=== PATIENT | female | born 1980 | race Caucasian/White ===

== ENCOUNTER 2018-02-04 23:31 | Emergency (ER) | payer MEDICAID ==
[2018-02-04] MEDS ORDERED: CEFEPIME 2 GM/D5W RTU 2 GM/50 ML RTUPB IV ONE (23:44)
[2018-02-04] MEDS ORDERED: RINGERS SOLUTION,LACTATED 1,000 ML IV ONE (23:44)
[2018-02-05 00:11] LABS: HEMATOCRIT 28.3 % (36.0-47.0); HEMOGLOBIN 8.7 g/dL (12.0-15.5); MEAN CORPUSCULAR HEMOGLOBIN 22.1 pg (27.0-33.4); MEAN CORPUSCULAR HGB CONC 30.9 g/dL (32.0-36.0); MEAN CORPUSCULAR VOLUME 72 fl (80-97); PLATELET COUNT 321 10^3/uL (150-450); RED BLOOD COUNT 3.95 10^6/uL (3.72-5.28); RED CELL DISTRIBUTION WIDTH 19.4 % (11.5-14.0); WHITE BLOOD COUNT 22.2 10^3/uL (4.0-10.5)
--- NOTE | 2018-02-05 00:19 | RADIOLOGY REPORT (SQ) ---
XR CHEST 1 VIEW HISTORY: Fever, cough. COMPARISON: None. FINDINGS/IMPRESSION: Normal cardiomediastinal contours. Lungs are clear. Low lung volumes are present. No pleural effusion or pneumothorax is seen. No acute osseous findings.
[2018-02-05 00:21] LABS: ALANINE AMINOTRANSFERASE 184 U/L (9-52); ALBUMIN 3.3 g/dL (3.5-5.0); ALKALINE PHOSPHATASE 471 U/L (38-126); ANION GAP 16 (5-19); ASPARTATE AMINO TRANSFERASE 123 U/L (14-36); BILIRUBIN,DIRECT 6.4 mg/dL (0.0-0.4); BILIRUBIN,TOTAL 7.8 mg/dL (0.2-1.3); BLOOD UREA NITROGEN 13 mg/dL (7-20); CALCIUM 8.7 mg/dL (8.4-10.2); CARBON DIOXIDE 17 mmol/L (22-30); CHLORIDE 110 mmol/L (98-107); GLUCOSE 114 mg/dL (75-110); POTASSIUM 3.4 mmol/L (3.6-5.0); SODIUM 142.9 mmol/L (137-145); TOTAL PROTEIN 7.1 g/dL (6.3-8.2)
[2018-02-05] MEDS ORDERED: RINGERS SOLUTION,LACTATED 1,000 ML IV ONE ×3 (00:22→08:08)
--- NOTE | 2018-02-05 00:22 | ER Document Report ---
ED General - General Chief Complaint: Fever Stated Complaint: FEVER Time Seen by Provider: 02/04/18 23:42 Cannot obtain history due to: Mentally challenged Notes: Patient is a 37-year-old female with a past medical history of cerebral palsy with associated profound mental retardation, nonverbal at baseline who presents by EMS with concerns of fever. The patient resides at a inpatient nursing facility. The report that for the past 3-4 days the patient has refused to eat. This was concerning to staff as normally she has a good appetite. They state tonight when she developed a fever they contacted her primary care doctor who encouraged them to bring her immediately to the emergency department. No history of similar symptoms in the past. The patient is not able to provide any history. - Related Data Allergies/Adverse Reactions: No Known Allergies Allergy (Unverified 02/05/18 00:06) Past Medical History - General Information source: Transfer Record, Outside Facility Records Cannot obtain history due to: Mentally challenged - Social History Smoking Status: Never Smoker Frequency of alcohol use: None Drug Abuse: None Lives with: Custodial Family History: Reviewed & Not Pertinent Patient has suicidal ideation: No Patient has homicidal ideation: No Renal/ Medical History: Denies: Hx Peritoneal Dialysis Review of Systems - Review of Systems -: Yes ROS unobtainable due to patient's medical condition Physical Exam - Vital signs Vitals: Resp 25 H 02/04/18 23:42 Interpretation: Tachycardic, Febrile Notes: PHYSICAL EXAMINATION: GENERAL: Chronically ill in appearance, appears quite uncomfortable. HEAD: Atraumatic, normocephalic. EYES: Pupils equal round and reactive to light, sclera anicteric, conjunctiva are normal. ENT: nares patent, oropharynx clear without exudates. Dry mucous membranes. NECK: supple without lymphadenopathy LUNGS: Breath sounds clear to auscultation bilaterally and equal. No wheezes rales or rhonchi. HEART: Regular tachycardia without murmurs ABDOMEN: Soft, mild diffuse generalized tenderness, normoactive bowel sounds. No guarding, no rebound. No masses appreciated. EXTREMITIES: no pitting or edema. No cyanosis. NEUROLOGICAL: No focal neurological deficits. Moves all extremities spontaneously and on command. PSYCH: Nonverbal SKIN: Warm, Dry, normal turgor, no rashes or lesions noted. Course - Re-evaluation Re-evalutation: 02/05/18 00:21 Presentation of a 37-year-old patient with a history of cerebral palsy who presents with sepsis. Patient is unable to provide history. Staff reports that she developed a fever to 104 rectal today at the facility. Dr. Hughes advised transfer to the hospital. On exam patient has no focal findings beyond borderline hypoxemia on vitals. A full panel of labs has been obtained. I have initiated cefepime as well as IV fluids. Will reassess after labs have been completed. 02/05/18 00:56 Labs are extremely concerning for ascending cholangitis. Patient has a marked leukocytosis, significant elevation of direct bilirubin, LFT derangements. Particular in the context of fever this is a sending cholangitis until otherwise proven. Will proceed with right upper quadrant ultrasound, CT abdomen pelvis with IV contrast, ongoing IV fluids, add Flagyl to cefepime and plan for transfer after completion of radiographic imaging. 02/05/18 02:10 CT scan does show large dilation up to 6 mm of the intrahepatic and extra hepatic bile ducts with a distal stone very much so worrisome for cholangitis. I have contacted [facility] and have requested transfer. I am awaiting callback. The patient has an improvement of her discomfort after receiving IV fentanyl. She has had some nausea and vomiting which has been controlled with IV Zofran. She does continue to have mild tachycardia but she is not hypotensive. She is continuing to receive IV fluids. Will continue to reassess at regular intervals. 02/05/18 02:24 Patient continues to be hemodynamically within acceptable limits. I discussed this case with the resident working under who has accepted this patient. Will continue to monitor until transfer has arrived. 02/05/18 02:58 Patient continues to rest comfortably at this point. Overall appears much improved after receiving IV fluids and pain control. Awaiting transport. - Vital Signs Vital signs: Temp Pulse Resp BP Pulse Ox 99.3 F 17 111/66 96 02/05/18 00:59 02/05/18 01:01 02/05/18 01:00 02/05/18 01:01 - Laboratory Result Diagrams: 02/04/18 23:53 02/04/18 23:53 Laboratory results interpreted by me: 02/04/18 02/04/18 02/04/18 23:53 23:53 23:53 WBC 22.2 H Hgb 8.7 L Hct 28.3 L MCV 72 L MCH 22.1 L MCHC 30.9 L RDW 19.4 H Seg Neuts % (Manual) 82 H Abs Neuts (Manual) 18.2 H Potassium 3.4 L Chloride 110 H Carbon Dioxide 17 L Glucose 114 H Total Bilirubin 7.8 H Direct Bilirubin 6.4 H AST 123 H ALT 184 H Alkaline Phosphatase 471 H Albumin 3.3 L Urine Protein >=500 H Urine Blood MODERATE H Urine Bilirubin MODERATE H Urine Urobilinogen 4.0 H - Diagnostic Test Radiology reviewed: Reports reviewed Critical Care Note - Critical Care Note Total time excluding time spent on procedures (mins): 37 Comments: Critical care time spent obtaining history from patient or surrogate, discussions with consultants, development of treatment plan with patient or surrogate, evaluation of patient's response to treatment, examination of patient , ordering and performing treatments and interventions, ordering and review of laboratory studies, re-evaluation of patient's condition, ordering and review of radiographic studies and review of old charts Discharge - Discharge Clinical Impression: Ascending cholangitis Sepsis Qualifiers: Sepsis type: sepsis due to unspecified organism Qualified Code(s): A41.9 - Sepsis, unspecified organism Nausea and vomiting Qualifiers: Vomiting type: unspecified Vomiting Intractability: non-intractable Qualified Code(s): R11.2 - Nausea with vomiting, unspecified Condition: Fair Disposition: [facility] Referrals: YUKO HUGHES MD [Primary Care Provider] - Follow up as needed
[2018-02-05 00:29] LABS: APPEARANCE,URINE SLIGHTLY-CLOUDY; BILIRUBIN,URINE MODERATE (NEGATIVE); COLOR,URINE AMBER; GLUCOSE, URINE NEGATIVE (NEGATIVE); KETONES,URINE NEGATIVE (NEGATIVE); LEUKOCYTE ESTERASE,URINE NEGATIVE (NEGATIVE); NITRITE,URINE NEGATIVE (NEGATIVE); PROTEIN,URINE >=500 mg/dL (NEGATIVE); URINE SPECIFIC GRAVITY 1.031
[2018-02-05 00:32] LABS: ABSOLUTE LYMPHOCYTES# (MANUAL) 2.9 10^3/uL (0.5-4.7); ABSOLUTE MONOCYTES # (MANUAL) 1.1 10^3/uL (0.1-1.4); ABSOLUTE NEUTROPHILS# (MANUAL) 18.2 10^3/uL (1.7-8.2); BASOPHILS % (MANUAL) 0 % (0-2); EOSINOPHILS % (MANUAL) 0 % (0-6); LYMPHOCYTES % (MANUAL) 13 % (13-45); MONOCYTES % (MANUAL) 5 % (3-13); SEGMENTED NEUTROPHILS % (MAN) 82 % (42-78); TOTAL CELLS COUNTED 100
[2018-02-05 00:33] LABS: ANISOCYTOSIS 1+; POLYCHROMASIA 1+
[2018-02-05 00:34] LABS: PLATELET COMMENT ADEQUATE
[2018-02-05 00:43] LABS: VENOUS BLOOD BASE EXCESS -3.8 mmol/L; VENOUS BLOOD HCO3 20.9 mmol/L (20-32); VENOUS BLOOD PCO2 36.9 mmHg (35-63); VENOUS BLOOD PH 7.37 (7.30-7.42)
[2018-02-05] MEDS ORDERED: METRONIDAZOLE RTU 500 MG/NS 100 ML IV ONE (00:51)
[2018-02-05] MEDS ORDERED: FENTANYL CITRATE INJ/PF 100 MCG/2 ML AMPUL ONE (01:12)
[2018-02-05] MEDS ORDERED: FENTANYL CITRATE INJ/PF 100 MCG/2 ML AMPUL IV ONE (01:13)
--- NOTE | 2018-02-05 01:59 | RADIOLOGY REPORT (SQ) ---
CT OF THE ABDOMEN AND PELVIS WITH IV CONTRAST Clinical History: 37-year-old female with fever and possible descending cholangitis. Technique: Multiple axial images are taken from the lung bases down to the proximal thigh with the use of IV contrast. Images are then reconstructed in the sagittal and coronal planes. This exam was performed according to our departmental dose-optimization program which includes use of Automated Exposure Control, adjustment of the mA and/or kV according to patient size and/or use of iterative reconstruction technique. Comparison: None available. Findings: CT abdomen: Lung Bases: The lung bases demonstrate minimal bibasilar atelectasis. There is no evidence of free air. Liver: Liver demonstrates intrahepatic biliary prominence. Gallbladder: The bladder is overly distended. Common bile duct: Common bile duct is overly distended. Small stone is visualized measuring approximately 6 mm. Spleen: There is an area of decreased attenuation within the spleen measures 10 mm. Adrenal glands: The adrenal glands are unremarkable. Pancreas: The pancreas is within normal. Stomach: The stomach is within normal limits allowing for lack of adequate distention. Small bowel: Small bowel is fluid-filled measuring within normal. Small bowel mesentery: The small bowel mesentery is grossly unremarkable. Retroperitoneum: The descending aorta measures within normal limits. There is no significant retroperitoneal lymphadenopathy. Kidneys: The kidneys opacify with contrast appropriately. There is no hydronephrosis nor obstructing stone. The portions of the ureters which are visualized measure within normal limits. CT Pelvis: Appendix: The appendix measures within normal on coronal image 59. Large bowel: Large bowel is impacted with stool. Bladder: Bladder is within normal limits for the amount of distention. Pelvic wall: The pelvic wall and abdominal wall are grossly unremarkable. Bones: Osseous structures demonstrate multilevel degenerative disc disease. There is degenerative change with chronically dislocated bilateral hips which is not acute. : Evaluation of the uterus and ovaries is limited due to volume averaging with unopacified bowel. Free fluid: There is no free fluid in the pelvis. IMPRESSION: 1. Intrahepatic and extrahepatic biliary distention with a small stone seen in the common bile duct measuring 6 mm. MRCP may help better delineate. Secondary infection cannot be excluded within the biliary system. 2. Area of decreased attenuation within the spleen most likely represents a hemangioma. However, please correlate with patient's medical history. 3. Fluid-filled small bowel which can be seen with viral etiologies. 4. Impaction of stool throughout the large bowel. 5. Normal appendix. 6. Chronically dislocated bilateral hips.
[2018-02-05] MEDS ORDERED: ONDANSETRON HCL INJ/PF 4 MG/2 ML SDV IV ONE ×2 (02:01→06:43)
--- NOTE | 2018-02-05 03:03 | RADIOLOGY REPORT (SQ) ---
EXAM DESCRIPTION: US ABDOMEN LIMITED COMPLETED DATE/TME: 02/05/2018 00:00 CLINICAL HISTORY: 37 years Female, EVAL FOR ASCENDING CHOLANGITIS Comparison: CT, same day. LIMITATIONS: None. FINDINGS: Cholelithiasis, gallbladder sludge, gallbladder hydrops with transverse diameter 5.5 cm, no gallbladder wall thickening, indeterminate sonographic Conte's test (due to medication and medical condition/cerebral palsy?), liver, a 1.6-cm diameter common bile duct, enlarged intrahepatic ducts, 13-cm right kidney, obscured pancreas, visualized vasculature/abdominal aorta, and no significant ascites appear otherwise unremarkable. IMPRESSION: Cholelithiasis. Gallbladder hydrops. Indeterminate sonographic Conte's test. 1.6 cm diameter common bile duct with enlarged intrahepatic ducts. Consider laboratory/MRCP correlation.
[2018-02-05] MEDS: FENTANYL CITRATE INJ/PF 100 MCG/2 ML AMPUL IV PRN ×3 (03:30→05:12)
[2018-02-05] MEDS ORDERED: HYDROMORPHONE HCL INJ/PF 2 MG/ML AMPULE IV ONE ×2 (05:21→05:24)
[2018-02-05] MEDS ORDERED: METRONIDAZOLE 500 MG/NS RTU 500 MG/100 ML RTUPB IV SCH (06:00)
[2018-02-05] MEDS ORDERED: PANTOPRAZOLE SODIUM 40 MG VIAL IV ONE (06:43)
--- NOTE | 2018-02-05 06:55 | ER Document Report ---
Doctor's Note Notes: 02/05/18 06:53 The patient is pending transfer to [facility], waiting for transport services to arrive. Patient began vomiting, it is mostly dry heaves, retching, with some very dark brown liquid. Difficult to tell if this is coffee-ground appearance or bilious. A sample was obtained this into the lab for gastric occult testing. Patient is anemic, but her red cell indices suggest it is a chronic iron deficiency anemia. 02/05/18 07:58 Gastric occult testing was positive as suspected. 02/05/18 09:06 Transport is leaving now with the patient, they have been here on scene in excess of 1 hour. The patient's nausea vomiting cleared after the Zofran was given. She was repositioned into an almost sitting up position and squared onto her back. She would cough repeatedly without actually coughing up anything. There was a lot of rhonchi heard in the upper airway laryngeal region. The lung sounds themselves were clear on auscultation on both sides in all ramirez. The blood pressure cuff attached to the left upper arm by the transport group was getting a blood pressure of systolic in the 60s, while the patient was upright, active and had a very strong right radial pulse. Her oxygen saturation is 95% on 2 L nasal cannula, and she is a mouth breather. During the time the transport team was here assessed the patient, I repeatedly emphasized the need for her to get higher level of care including ERCP as soon as possible.
[2018-02-05] MEDS ORDERED: ACETAMINOPHEN 650 MG SUPP.RECT PR ONE (06:56)
[2018-02-05] MEDS ORDERED: CEFEPIME 2 GM/D5W RTU 2 GM/50 ML RTUPB IV SCH (08:00)
[2018-02-05 08:17] VITALS: BP 100/56
== END 2018-02-05 08:10 | disposition short-term general hospital (02) ==
LOC: ER 23:31
DX: K80.30 Calculus of bile duct with cholangitis, unspecified, without obstruction (principal); A41.9 Sepsis, unspecified organism; R11.2 Nausea with vomiting, unspecified; D64.9 Anemia, unspecified; R05 Cough; G80.9 Cerebral palsy, unspecified; F79 Unspecified intellectual disabilities
CPT/HCPCS: 96376; 99291; 96361; 96375; 96365; 96367; 36415; 87040; 87086; 85025; 82271; 87077; 80053; 81001; 87186; 82803; 83605; 71045; 76705; 74177; J3490; J3010; J1170; S0164; J2405; J7120; J0692

== ENCOUNTER → 2019-08-14 | Outpatient (CLI) | payer MEDICAID ==
--- NOTE | 2019-08-14 14:32 | RADIOLOGY REPORT (SQ) ---
EXAM DESCRIPTION: UGI W/ SINGLE CONTRAST; SMALL BOWEL POST UGI COMPLETED DATE/TIME: 08/14/2019 12:33 pm REASON FOR STUDY: CHANGE IN BOWLE HABIT R19.4 CHANGE IN BOWEL HABIT COMPARISON: None. TECHNIQUE: Under fluoroscopic guidance, patient ingested thin barium mixed with 50 mL Isovue-300. F luoroscopic spot images and routine radiographic images acquired and stored on PACS. Following evaluation of esophagus and stomach, additional barium administered with serial delayed abd ominal radiographs until colonic identification. Fluoroscopic images recorded of the terminal ileum. FLUOROSCOPY TIME: 5.5 minutes of fluoroscopy was used 39 images saved to PACS. LIMITATIONS: Patient has cerebral palsy and is very immobile FINDINGS: DIRECTORY CLERK KUB: THE there is nonspecific bowel gas pattern. Moderate fecal material seen thro ughout the colon. Multiple surgical clips seen in the right upper quadrant and 1 clip deep within th e pelvis. NEUROMUSCULAR COORDINATION OF SWALLOW: Normal. No aspiration. ESOPHAGEAL MOTILITY: Slow primary peristalsis. No esophageal spasm. ESOPHAGEAL MUCOSA: Normal mucosa without masses or ulceration. GASTRO-ESOPHAGEAL JUNCTION: Small hiatal hernia with mild gastroesophageal reflux. STOMACH: Normal without masses or ulcerations. GASTRIC OUTLET: No delay in emptying. Normal pylorus. DUODENAL BULB: Normal distention. No spasm or ulceration. DUODENUM: Mild mucosal fold thickening throughout the 2nd portion the duodenum. No distinct ulcerati ons can be identified. 3rd and 4th portions of the duodenum are unremarkable. JEJUNUM: Normal mucosal pattern. No dilatation, segmentation, strictures or masses. ILEUM: Normal mucosal pattern. No dilatation, segmentation, strictures or masses. TERMINAL ILEUM AND ILEO-CECAL VALVE: Normal mucosal pattern without cobble-stoning or stricture. Nor mal compression. PROXIMAL COLON: Moderate fecal material within the cecum and ascending colon. There is normal fillin g of the appendix. NON-GI TRACT STRUCTURES: No significant finding. OTHER: Normal transit time through the small bowel with visualization of the cecum on the 3 hour bayron yed image. IMPRESSION: 1. SMALL HIATAL HERNIA WITH MILD GASTROESOPHAGEAL REFLUX. 2. MUCOSAL THICKENING THROUGHOUT THE 2ND PORTION THE DUODENUM CONSISTENT WITH DUODENITIS. THERE IS NO DELAY IN GASTRIC EMPTYING. 3. NORMAL SMALL BOWEL FOLLOW-THROUGH WITHOUT EVIDENCE OF SMALL-BOWEL OBSTRUCTION. 4. MODERATE FECAL MATERIAL THROUGHOUT THE COLON CONSISTENT WITH CONSTIPATION. COMMENT: Recommend endoscopy for further evaluation of the proximal duodenum. Quality ID 145: Final reports for procedures using fluoroscopy that document radiation exposure wander manoj, or exposure time and number of fluorographic images (if radiation exposure indices are not avail able) TECHNICAL DOCUMENTATION: JOB ID: [id number] 2010 [employer]- All Rights Reserved Reading location - IP/workstation name: [email or web address]
--- NOTE | 2019-08-14 14:32 | RADIOLOGY REPORT (SQ) ---
EXAM DESCRIPTION: UGI W/ SINGLE CONTRAST; SMALL BOWEL POST UGI COMPLETED DATE/TIME: 08/14/2019 12:33 pm REASON FOR STUDY: CHANGE IN BOWLE HABIT R19.4 CHANGE IN BOWEL HABIT COMPARISON: None. TECHNIQUE: Under fluoroscopic guidance, patient ingested thin barium mixed with 50 mL Isovue-300. F luoroscopic spot images and routine radiographic images acquired and stored on PACS. Following evaluation of esophagus and stomach, additional barium administered with serial delayed abd ominal radiographs until colonic identification. Fluoroscopic images recorded of the terminal ileum. FLUOROSCOPY TIME: 5.5 minutes of fluoroscopy was used 39 images saved to PACS. LIMITATIONS: Patient has cerebral palsy and is very immobile FINDINGS: GRAIN COMBINER KUB: THE there is nonspecific bowel gas pattern. Moderate fecal material seen thro ughout the colon. Multiple surgical clips seen in the right upper quadrant and 1 clip deep within th e pelvis. NEUROMUSCULAR COORDINATION OF SWALLOW: Normal. No aspiration. ESOPHAGEAL MOTILITY: Slow primary peristalsis. No esophageal spasm. ESOPHAGEAL MUCOSA: Normal mucosa without masses or ulceration. GASTRO-ESOPHAGEAL JUNCTION: Small hiatal hernia with mild gastroesophageal reflux. STOMACH: Normal without masses or ulcerations. GASTRIC OUTLET: No delay in emptying. Normal pylorus. DUODENAL BULB: Normal distention. No spasm or ulceration. DUODENUM: Mild mucosal fold thickening throughout the 2nd portion the duodenum. No distinct ulcerati ons can be identified. 3rd and 4th portions of the duodenum are unremarkable. JEJUNUM: Normal mucosal pattern. No dilatation, segmentation, strictures or masses. ILEUM: Normal mucosal pattern. No dilatation, segmentation, strictures or masses. TERMINAL ILEUM AND ILEO-CECAL VALVE: Normal mucosal pattern without cobble-stoning or stricture. Nor mal compression. PROXIMAL COLON: Moderate fecal material within the cecum and ascending colon. There is normal fillin g of the appendix. NON-GI TRACT STRUCTURES: No significant finding. OTHER: Normal transit time through the small bowel with visualization of the cecum on the 3 hour bayron yed image. IMPRESSION: 1. SMALL HIATAL HERNIA WITH MILD GASTROESOPHAGEAL REFLUX. 2. MUCOSAL THICKENING THROUGHOUT THE 2ND PORTION THE DUODENUM CONSISTENT WITH DUODENITIS. THERE IS NO DELAY IN GASTRIC EMPTYING. 3. NORMAL SMALL BOWEL FOLLOW-THROUGH WITHOUT EVIDENCE OF SMALL-BOWEL OBSTRUCTION. 4. MODERATE FECAL MATERIAL THROUGHOUT THE COLON CONSISTENT WITH CONSTIPATION. COMMENT: Recommend endoscopy for further evaluation of the proximal duodenum. Quality ID 145: Final reports for procedures using fluoroscopy that document radiation exposure wander manoj, or exposure time and number of fluorographic images (if radiation exposure indices are not avail able) TECHNICAL DOCUMENTATION: JOB ID: [id number] 2010 [employer]- All Rights Reserved Reading location - IP/workstation name: [email or web address]
== END ==
LOC: WI 08:51
PROVIDERS: ATTEND Internal Medicine Cardiovascular Disease
DX: R19.4 Change in bowel habit (principal)
CPT/HCPCS: 74240; 74248